=== PATIENT | male | born 1970 | race Asian ===

== ENCOUNTER 2016-07-30 09:35 | Emergency (ER) | payer SELFPAY ==
[2016-07-30] MEDS ORDERED: Albuterol 2.5 MG/3 ML NEB.SOL* (0.083%) INH ONE (09:43)
[2016-07-30] MEDS ORDERED: Ipratropium 0.5MG/2.5ML NEB* 0.5 MG/2.5 ML NEB.SOLN INH ONE (09:43)
[2016-07-30] MEDS ORDERED: predniSONE TAB* 20 MG PO ONE (09:43)
--- NOTE | 2016-07-30 10:54 | UC ---
Allergic Reaction HPI - HPI Summary HPI Summary: 3 DAYS OF NASAL CONGESTION, ITCHY, WATERY, IRRITATED EYES, ITCHY EARS, SCRATCHY THROAT, BREATHING FEELS TIGHT, WHEEZY. HAS A H/O ALLERGIES AND STATES THIS HAPPENS EVERY YEAR. NO FEVER, N/V/D. - History of Current Complaint Chief Complaint: UCRespiratory Stated Complaint: seasonal allergies, sob Time Seen by Provider: 07/30/16 09:43 Hx Obtained From: Patient Onset/Duration: Gradual Onset, Lasting Days, Still Present Severity Initially: Moderate Severity Currently: Moderate Pain Intensity: 0 Pain Scale Used: 0-10 Numeric Location: Diffuse - EYES, EARS, NOSE, THROAT Alleviating Factor(s): Nothing Associated Signs And Symptoms: Positive: Cough Wheezing. Negative: Abdominal Pain, Chest Pain, Diaphoresis, Difficulty Breathing, Hoarseness, Lightheadedness , Nausea, Rash, Syncope, Throat Tightening, Vomiting - Allergies/Home Medications Allergies/Adverse Reactions: Allergies Allergy/AdvReac Type Severity Reaction Status Date / Time No Known Allergies Allergy Verified 07/30/16 09:41 Home Medications: Home Medications Loratadine 10 mg PO 07/30/16 [History] Saline NASAL SPRAY 0.65%* [Sodium Chloride 0.65% Nasal [place]*] 1 spray BOTH NARES Q4HR 07/30/16 [History Confirmed 07/30/16] Tetrahydrozoline HCl (Ophth) [Visine] 0.05 % OP 07/30/16 [History] PMH/Surg Hx/FS Hx/Imm Hx Respiratory History Of: Reports: Asthma - Surgical History Surgical History: None - Family History Known Family History: Negative: Hypertension - Social History Alcohol Use: None Substance Use Type: None Smoking Status (MU): Never Smoked Tobacco Review of Systems Constitutional: Negative Skin: Negative Eyes: Eye Redness, Other - ITCHY, WATERY EYES ENT: Sore Throat, Ear Ache - ITCHY EARS, Nasal Discharge Respiratory: Cough Cardiovascular: Negative Gastrointestinal: Negative All Other Systems Reviewed And Are Negative: Yes Physical Exam Triage Information Reviewed: Yes Appearance: Well-Appearing, No Pain Distress, Well-Nourished Vital Signs: Initial Vital Signs Temp 97.3 F 07/30/16 09:37 Pulse 64 07/30/16 09:37 Resp 22 07/30/16 09:37 BP 175/115 07/30/16 09:37 Pulse Ox 95 07/30/16 09:37 Vital Signs Reviewed: Yes Eyes: Positive: Conjunctiva Inflamed. Negative: Discharge ENT: Positive: Hearing grossly normal, Pharynx normal, Nasal congestion, TMs normal Neck: Positive: Supple, Nontender, No Lymphadenopathy Respiratory: Positive: Chest non-tender, Lungs clear, Normal breath sounds, No respiratory distress, No accessory muscle use Cardiovascular Exam: Normal Abdomen Description: Positive: Soft Musculoskeletal: Positive: No Edema Neurological: Positive: Alert Psychological: Positive: Age Appropriate Behavior Skin: Negative: rashes Re-Evaluation - Re-Evaluation First Eval Re-Evaluation Time: 10:20 - FEELS IMPROVED AFTER DUONEB AND PREDNISONE 60MG Change: Improved Allergic Reaction Course/Dx - Course Course Of Treatment: PT FEELS BETTER AFTER DUONEB. PREDNISONE 60MG PO GIVEN HERE AND RX FOR 4 MORE DAYS. RX ALSO FOR PATADAY, NEBS AND RESCUE INHALER. PT DECLINES NASAL STEROID. PT ADVISED TO F/U WITH CLINIC SPECIALIST GIVEN RECURRENT SX. PT ALSO WITH QUITE ELEVATED BP BUT NO DX OF HTN. HAS AN DOCTOR THAT HE SEES A PCP. ADVISED HIM TO SEEK FOLLOW-UP FOR THIS. - Differential Dx/Diagnosis Provider Diagnoses: SEASONAL ALLERGIES Discharge - Discharge Plan Condition: Stable Disposition: HOME Prescriptions: Albuterol 2.5MG/3ML (0.083%)* [Ventolin 2.5 MG/3 ML NEB.ELEAZAR*] 2.5 mg INH Q4H PRN #1 box PRN Reason: Wheezing Albuterol HFA INHALER* [Ventolin HFA Inhaler*] 2 puff INH Q4H PRN #1 mdi PRN Reason: Shortness Of Breath Olopatadine 0.2% (NF) [Pataday 0.2% (NF)] 1 drop BOTH EYES DAILY #1 btl predniSONE TAB* [Deltasone TAB*] 50 mg PO DAILY #5 tab Patient Education Materials: Allergic Rhinitis (ED), Allergies (ED) Additional Instructions: CONTINUE YOUR LORATADINE DAILY. ALBUTEROL NEBS AND RESCUE INHALER SENT TO YOUR PHARMACY. TAKE THE PREDNISONE DAILY FOR THE NEXT 4 DAYS. ALLERGY EYE DROPS ALSO SENT IN TO YOUR PHARMACY. IF YOUR SYMPTOMS ARE RECURRENT I WOULD RECOMMEND FOLLOWING -UP WITH AN CLINIC SPECIALIST. ALSO FOLLOW-UP WITH YOUR PCP. [facility] Address: [address], [place] [address] [facility] [address] [place], [place] [address] [place] [address] YOUR BP IS QUITE ELEVATED. PLEASE FOLLOW-UP WITH YOUR PCP IN THE NEXT 3-5 DAYS FOR RE-EVALUATION.
[2016-07-30 11:01] VITALS: BP 160/110
== END 2016-07-30 11:08 | disposition home or self-care (01) ==
LOC: UCEAST 09:35
DX: J30.2 Other seasonal allergic rhinitis (principal)
CPT/HCPCS: 99202; G0463; J7512; J7644

== ENCOUNTER 2017-01-04 13:09 | Emergency (ER) | payer BC ==
[2017-01-04 13:45] VITALS: BP 146/99
[2017-01-04] MEDS ORDERED: Albuterol 2.5 MG/3 ML NEB.SOL* (0.083%) INH ONE (14:01)
[2017-01-04] MEDS ORDERED: Ipratropium 0.5MG/2.5ML NEB* 0.5 MG/2.5 ML NEB.SOLN INH ONE (14:01)
[2017-01-04] MEDS ORDERED: predniSONE TAB* 20 MG PO ONE (14:01)
--- NOTE | 2017-01-04 14:05 | UC ---
Respiratory Complaint HPI - HPI Summary HPI Summary: 3-4 DAYS OF COUGH, CHEST CONGESTION AND SOB. FEELS WHEEZY. HAS H/O ASTHMA BUT RAN OUT OF ALBUTEROL. NO FEVER OR EAR PAIN. - History of Current Complaint Chief Complaint: UCRespiratory Stated Complaint: COUGH Time Seen by Provider: 01/04/17 13:54 Hx Obtained From: Patient, Family/Radio Recorder - ANU Onset/Duration: Gradual Onset, Lasting Days, Still Present Timing: Constant Severity Initially: Moderate Severity Currently: Moderate Pain Intensity: 0 Pain Scale Used: 0-10 Numeric Character: Cough: Productive Aggravating Factors: Exertion, Deep Breaths Alleviating Factors: Nothing Associated Signs And Symptoms: Positive: Dyspnea, Wheezing, URI - Allergies/Home Medications Allergies/Adverse Reactions: Allergies Allergy/AdvReac Type Severity Reaction Status Date / Time No Known Allergies Allergy Verified 01/04/17 13:41 PMH/Surg Hx/FS Hx/Imm Hx Respiratory History: Asthma - Surgical History Surgical History: None - Family History Known Family History: Negative: Hypertension - Social History Alcohol Use: None Substance Use Type: None Smoking Status (MU): Never Smoked Tobacco Review of Systems Constitutional: Negative ENT: Sore Throat Respiratory: Shortness Of Breath, Cough, Other - WHEEZE Cardiovascular: Negative Gastrointestinal: Negative All Other Systems Reviewed And Are Negative: Yes Physical Exam Triage Information Reviewed: Yes Appearance: Well-Appearing, No Pain Distress, Well-Nourished Vital Signs: Initial Vital Signs Temp 98.6 F 01/04/17 13:41 Pulse 70 01/04/17 13:41 Resp 16 01/04/17 13:41 BP 146/99 01/04/17 13:41 Pulse Ox 95 01/04/17 13:41 Vital Signs Reviewed: Yes Eyes: Positive: Conjunctiva Clear ENT: Positive: Hearing grossly normal, Pharynx normal, TMs normal Neck: Positive: Supple, Nontender, No Lymphadenopathy Respiratory: Positive: No respiratory distress, No accessory muscle use, Decreased breath sounds, Wheezing - DIFFUSELY Cardiovascular Exam: Normal Abdomen Description: Positive: Soft Musculoskeletal: Positive: No Edema Neurological: Positive: Alert Psychological: Positive: Normal Response To Family, Age Appropriate Behavior Skin: Negative: rashes UC Diagnostic Evaluation - Laboratory O2 Sat by Pulse Oximetry: 95 Respiratory Course/Dx - Course Course Of Treatment: DUONEB AND 60MG PREDNISONE GIVEN HERE. RX FOR ALBUTEROL INHALER, PREDNISONE FOR 4 MORE DAYS AND AZITH. FOLLOW-UP IF NEEDED. - Differential Dx/Diagnosis Provider Diagnoses: ACUTE BRONCHITIS WITH BRONCHOSPASM Discharge - Discharge Plan Condition: Stable Disposition: HOME Prescriptions: Albuterol HFA INHALER* [Ventolin HFA Inhaler*] 2 puff INH Q4H PRN #1 mdi PRN Reason: Shortness Of Breath Azithromycin [Azithromycin 500 MG TAB] 500 mg PO DAILY #5 tab predniSONE TAB* [Deltasone TAB*] 50 mg PO DAILY #4 tab Patient Education Materials: Acute Bronchitis (ED), Bronchospasm (ED) Additional Instructions: NEXT DOSE OF PREDNISONE TOMORROW. ALBUTEROL INHALER REFILLED. TAKE AZITH FOR FULL 5 DAYS. FOLLOW-UP HERE OR WITH A PCP IF NOT IMPROVING WITH ABOVE MEDICATION. CALL THE NUMBER BELOW FOR ASSISTANCE IN ESTABLISHING WITH A PCP An additional resource available to assist in finding the appropriate physician for your health care needs is the [facility] ([facility]ilah Gonzalez). You may contact them by calling [phone].
== END 2017-01-04 15:15 | disposition home or self-care (01) ==
LOC: UCEAST 13:09
DX: J20.9 Acute bronchitis, unspecified (principal)
CPT/HCPCS: 99212; G0463; J7512; J7644